=== PATIENT | male | born 1975 | race Caucasian/White ===

== ENCOUNTER 2018-03-01 11:56 | Emergency (ER) | payer MEDICARE, MEDICAID ==
[~2018-03-01] VITALS: Ht 190.5 cm; Wt 103.3 kg
[~2018-03-01 11:56] MED LIST: TRAM50TA2 PO
[2018-03-01 11:58] VITALS: BP 139/97
[2018-03-01] MEDS ORDERED: ANTIDEPRESSANT (12:19)
[2018-03-01] MEDS ORDERED: HYDROcodone/APAP 5/325 TABLET PO ONE (12:30)
[2018-03-01] MEDS ORDERED: HYDROcodone/APAP 5/325 TABLET ONE (12:37)
== END 2018-03-01 12:53 | disposition home or self-care (01) ==
LOC: ED 12:40
DX: K02.9 Dental caries, unspecified (principal)
CPT/HCPCS: 99283